=== PATIENT | male | born 1960 | race African-American/Black ===

== ENCOUNTER 2023-03-24 12:53 | Inpatient (IN) | payer OTHER ==
[2023-03-24] MEDS ORDERED: hydrOXYzine PAMOATE 25 MG CAPSULE (FP) PO PRN (16:44)
[2023-03-24] MEDS ORDERED: IBUPROFEN 400 MG TABLET (FP) PO PRN (16:44)
[2023-03-24] MEDS ORDERED: LOPERAMIDE HCL 2 MG CAPSULE PO PRN (16:44)
[2023-03-24] MEDS ORDERED: BENZOCAINE/MENTHOL (CHLORASEPTIC ) LOZENGE MM PRN (16:44)
[2023-03-24] MEDS ORDERED: guaiFENesin 600 MG TABLET.ER (FP) PO PRN (16:44)
[2023-03-24] MEDS ORDERED: NALOXONE HCL (KLOXXADO) 8 MG SPRAY NS PRN (16:44)
[2023-03-24] MEDS ORDERED: POLYETHYLENE GLYCOL (HEALTHYLAX) 3350 17 GM PACKET PO PRN (16:44)
[2023-03-24] MEDS ORDERED: BENZONATATE 200 MG CAPSULE PO PRN (16:44)
[2023-03-24] MEDS ORDERED: COLLOIDAL OATMEAL 1 BAR EACH TP PRN (16:44)
[2023-03-24] MEDS ORDERED: NALOXONE HCL 0.4 MG/ML VIAL IM PRN (16:44)
[2023-03-24] MEDS ORDERED: AMMONIUM LACTATE 12% LOTION 225 GM BOTTLE TP PRN (16:44)
[2023-03-24] MEDS ORDERED: MAGNESIUM HYDROX 2400MG/30ML ORAL SUSPENSION 30 ML CUP PO PRN (16:44)
[2023-03-24] MEDS ORDERED: TUBERCULIN PPD 5 TU/0.1ML VIAL ID ONE ×2 (18:59→21:48)
[2023-03-24] MEDS: THIAMINE HCL 100 MG TABLET (FP) PO SCH (21:07)
[2023-03-24] MEDS: MELATONIN 5 MG TABLETS PO SCH (21:07)
[2023-03-24] MEDS ORDERED: INSULIN (LEVEMIR) 100 UNITS/ML UNITS SQ ONE ×2 (21:09→21:48)
[2023-03-24] MEDS: ATORVASTATIN CA 80 MG TABLET (FP) PO SCH (21:11)
[2023-03-24] MEDS: INSULIN (LEVEMIR) 100 UNITS/ML UNITS SQ SCH (21:11)
[2023-03-24] MEDS ORDERED: INSULIN (NOVOLOG) ASPART 100 UNITS/ML 10ML VIAL ONE (21:48)
[2023-03-25] MEDS: IBUPROFEN 600 MG TABLET (FP) PO PRN ×2 (04:34→10:37)
[2023-03-25] MEDS: metFORMIN HCL 500 MG TABLET (FP) PO SCH (06:22)
[2023-03-25] MEDS ORDERED: methaDONE HCL 10 MG TABLET PO SCH (09:30)
[2023-03-25] MEDS: BACITRACIN 0.9 GM PACKET TP SCH (10:08)
[2023-03-25] MEDS: CLOPIDOGREL BISULFATE 75 MG TABLET (FP) PO SCH (10:09)
[2023-03-25] MEDS: PRENATAL VITAMINS W/ FOLIC ACID TABLET (FP) PO SCH (10:09)
[2023-03-25] MEDS: ASPIRIN 81 MG CHEWABLE TABLETS PO SCH (10:09)
[2023-03-25] MEDS ORDERED: methaDONE 80 MG, methaDONE 20 MG PO SCH (10:10)
[2023-03-25 11:28] LABS: HEMATOCRIT 25.2 % (35.4-49); HEMOGLOBIN 8.6 GM/dL (11.7-16.9); MCH 31.5 pg (25.7-33.7); MCHC 34.1 g/dl (32.0-35.9); MEAN CELL VOLUME 92.2 fl (80-96); PLATELET COUNT 195 10^3/uL (134-434); RBC 2.74 M/mm3 (4.00-5.60); RDW 15.9 % (11.9-15.9); WHITE BLOOD COUNT 5.3 K/mm3 (4.0-10.0)
[2023-03-25 11:32] LABS: POTASSIUM 4.7 mmol/L (3.5-5.1)
[2023-03-25 11:41] LABS: CREATININE 1.2 mg/dL (0.55-1.3)
[2023-03-25 11:43] LABS: BILIRUBIN,TOTAL 0.1 mg/dL (0.2-1); TOT PROT 6.6 g/dl (6.4-8.2)
[2023-03-25 11:46] LABS: CALCIUM 9.1 mg/dL (8.5-10.1)
[2023-03-25 11:47] LABS: BLOOD UREA NITROGEN 28.9 mg/dL (7-18)
[2023-03-25 11:55] LABS: SYPHILIS W/ RPR CONF NON-REACTIVE (NONREACTIVE)
[2023-03-25] MEDS: FERROUS SO4 325 MG TABLET (FP) PO SCH (13:14)
[2023-03-25] MEDS: PANTOPRAZOLE 40 MG TABLET PO SCH (14:32)
[2023-03-25] MEDS: INSULIN (LEVEMIR) 100 UNITS/ML UNITS SQ SCH (21:25)
[2023-03-25] MEDS: THIAMINE HCL 100 MG TABLET (FP) PO SCH (21:26)
[2023-03-25] MEDS: ATORVASTATIN CA 80 MG TABLET (FP) PO SCH (21:26)
[2023-03-25] MEDS: MELATONIN 5 MG TABLETS PO SCH (21:26)
[2023-03-25] MEDS: ACETAMINOPHEN 325 MG TABLET (FP) PO PRN (21:27)
[2023-03-26] MEDS: metFORMIN HCL 500 MG TABLET (FP) PO SCH (06:34)
[2023-03-26] MEDS: methaDONE 80 MG, methaDONE 20 MG PO SCH (06:34)
[2023-03-26] MEDS: ACETAMINOPHEN 325 MG TABLET (FP) PO PRN ×2 (06:36→21:20)
[2023-03-26] MEDS: FERROUS SO4 325 MG TABLET (FP) PO SCH (09:37)
[2023-03-26] MEDS: ASPIRIN 81 MG CHEWABLE TABLETS PO SCH (09:37)
[2023-03-26] MEDS: PANTOPRAZOLE 40 MG TABLET PO SCH (09:37)
[2023-03-26] MEDS: CLOPIDOGREL BISULFATE 75 MG TABLET (FP) PO SCH (09:37)
[2023-03-26] MEDS: PRENATAL VITAMINS W/ FOLIC ACID TABLET (FP) PO SCH (09:37)
[2023-03-26] MEDS: BACITRACIN 0.9 GM PACKET TP SCH (09:39)
[2023-03-26] MEDS ORDERED: methaDONE HCL 10 MG TABLET PO SCH (10:00)
[2023-03-26 15:00] LABS: URINE APPEARANCE CLEAR; URINE BILIRUBIN NEGATIVE (NEGATIVE); URINE COLOR YELLOW; URINE GLUCOSE (UA) NEGATIVE (NEGATIVE); URINE KETONE NEGATIVE (NEGATIVE); URINE LEUK ESTERASE NEGATIVE (NEGATIVE); URINE NITRITE NEGATIVE (NEGATIVE); URINE PROTEIN NEGATIVE (NEGATIVE); URINE UROBILINOGEN 0.2 mg/dL (0.2-1.0)
[2023-03-26] MEDS: MELATONIN 5 MG TABLETS PO SCH (21:19)
[2023-03-26] MEDS: ATORVASTATIN CA 80 MG TABLET (FP) PO SCH (21:20)
[2023-03-26] MEDS: THIAMINE HCL 100 MG TABLET (FP) PO SCH (21:20)
[2023-03-26] MEDS: INSULIN (LEVEMIR) 100 UNITS/ML UNITS SQ SCH (21:21)
[2023-03-27] MEDS: ACETAMINOPHEN 325 MG TABLET (FP) PO PRN ×3 (01:17→21:39)
[2023-03-27] MEDS ORDERED: methaDONE 80 MG, methaDONE 20 MG PO SCH (06:00)
[2023-03-27] MEDS: metFORMIN HCL 500 MG TABLET (FP) PO SCH (06:17)
[2023-03-27] MEDS: methaDONE 80 MG, methaDONE 20 MG PO SCH (06:18)
[2023-03-27] MEDS: ASPIRIN 81 MG CHEWABLE TABLETS PO SCH (09:22)
[2023-03-27] MEDS: CLOPIDOGREL BISULFATE 75 MG TABLET (FP) PO SCH (09:23)
[2023-03-27] MEDS: FERROUS SO4 325 MG TABLET (FP) PO SCH (09:23)
[2023-03-27] MEDS: PANTOPRAZOLE 40 MG TABLET PO SCH (09:23)
[2023-03-27] MEDS: PRENATAL VITAMINS W/ FOLIC ACID TABLET (FP) PO SCH (09:23)
[2023-03-27] MEDS: BACITRACIN 0.9 GM PACKET TP SCH (09:25)
[2023-03-27] MEDS: INSULIN (LEVEMIR) 100 UNITS/ML UNITS SQ SCH (21:37)
[2023-03-27] MEDS: THIAMINE HCL 100 MG TABLET (FP) PO SCH (21:39)
[2023-03-27] MEDS: MELATONIN 5 MG TABLETS PO SCH (21:39)
[2023-03-27] MEDS: ATORVASTATIN CA 80 MG TABLET (FP) PO SCH (21:44)
[2023-03-28] MEDS: ACETAMINOPHEN 325 MG TABLET (FP) PO PRN ×4 (03:45→21:37)
[2023-03-28] MEDS: metFORMIN HCL 500 MG TABLET (FP) PO SCH (06:44)
[2023-03-28] MEDS: methaDONE 80 MG, methaDONE 20 MG PO SCH (06:45)
[2023-03-28] MEDS: ASPIRIN 81 MG CHEWABLE TABLETS PO SCH (09:23)
[2023-03-28] MEDS: BACITRACIN 0.9 GM PACKET TP SCH (09:23)
[2023-03-28] MEDS: CLOPIDOGREL BISULFATE 75 MG TABLET (FP) PO SCH (09:23)
[2023-03-28] MEDS: FERROUS SO4 325 MG TABLET (FP) PO SCH (09:23)
[2023-03-28] MEDS: PANTOPRAZOLE 40 MG TABLET PO SCH (09:23)
[2023-03-28] MEDS: PRENATAL VITAMINS W/ FOLIC ACID TABLET (FP) PO SCH (09:24)
[2023-03-28] MEDS: MELATONIN 5 MG TABLETS PO SCH (21:37)
[2023-03-28] MEDS: ATORVASTATIN CA 80 MG TABLET (FP) PO SCH (21:37)
[2023-03-28] MEDS: THIAMINE HCL 100 MG TABLET (FP) PO SCH (21:37)
[2023-03-28] MEDS: INSULIN (LEVEMIR) 100 UNITS/ML UNITS SQ SCH (21:39)
[2023-03-29] MEDS: ACETAMINOPHEN 325 MG TABLET (FP) PO PRN ×3 (01:52→21:36)
[2023-03-29] MEDS: methaDONE 80 MG, methaDONE 20 MG PO SCH (06:22)
[2023-03-29] MEDS: metFORMIN HCL 500 MG TABLET (FP) PO SCH (06:22)
[2023-03-29] MEDS: ASPIRIN 81 MG CHEWABLE TABLETS PO SCH (09:42)
[2023-03-29] MEDS: CLOPIDOGREL BISULFATE 75 MG TABLET (FP) PO SCH (09:42)
[2023-03-29] MEDS: FERROUS SO4 325 MG TABLET (FP) PO SCH (09:42)
[2023-03-29] MEDS: PANTOPRAZOLE 40 MG TABLET PO SCH (09:42)
[2023-03-29] MEDS: PRENATAL VITAMINS W/ FOLIC ACID TABLET (FP) PO SCH (09:43)
[2023-03-29] MEDS: BACITRACIN 0.9 GM PACKET TP SCH (09:44)
[2023-03-29] MEDS: THIAMINE HCL 100 MG TABLET (FP) PO SCH (21:36)
[2023-03-29] MEDS: MELATONIN 5 MG TABLETS PO SCH (21:36)
[2023-03-29] MEDS: ATORVASTATIN CA 80 MG TABLET (FP) PO SCH (21:36)
[2023-03-29] MEDS: INSULIN (LEVEMIR) 100 UNITS/ML UNITS SQ SCH (21:36)
[2023-03-30] MEDS: ACETAMINOPHEN 325 MG TABLET (FP) PO PRN ×3 (02:13→21:44)
[2023-03-30] MEDS: metFORMIN HCL 500 MG TABLET (FP) PO SCH (06:17)
[2023-03-30] MEDS: methaDONE 80 MG, methaDONE 20 MG PO SCH (06:17)
[2023-03-30] MEDS: FERROUS SO4 325 MG TABLET (FP) PO SCH (09:28)
[2023-03-30] MEDS: CLOPIDOGREL BISULFATE 75 MG TABLET (FP) PO SCH (09:28)
[2023-03-30] MEDS: ASPIRIN 81 MG CHEWABLE TABLETS PO SCH (09:28)
[2023-03-30] MEDS: PANTOPRAZOLE 40 MG TABLET PO SCH (09:28)
[2023-03-30] MEDS: PRENATAL VITAMINS W/ FOLIC ACID TABLET (FP) PO SCH (09:28)
[2023-03-30] MEDS: BACITRACIN 0.9 GM PACKET TP SCH (09:30)
[2023-03-30] MEDS: INSULIN (LEVEMIR) 100 UNITS/ML UNITS SQ SCH (21:42)
[2023-03-30] MEDS: ATORVASTATIN CA 80 MG TABLET (FP) PO SCH (21:43)
[2023-03-30] MEDS: THIAMINE HCL 100 MG TABLET (FP) PO SCH (21:44)
[2023-03-30] MEDS: MELATONIN 5 MG TABLETS PO SCH (21:44)
[2023-03-31] MEDS: methaDONE 80 MG, methaDONE 20 MG PO SCH (06:35)
[2023-03-31] MEDS: metFORMIN HCL 500 MG TABLET (FP) PO SCH (07:43)
[2023-03-31] MEDS: PANTOPRAZOLE 40 MG TABLET PO SCH (09:40)
[2023-03-31] MEDS: ASPIRIN 81 MG CHEWABLE TABLETS PO SCH (09:40)
[2023-03-31] MEDS: FERROUS SO4 325 MG TABLET (FP) PO SCH (09:40)
[2023-03-31] MEDS: BACITRACIN 0.9 GM PACKET TP SCH (09:40)
[2023-03-31] MEDS: CLOPIDOGREL BISULFATE 75 MG TABLET (FP) PO SCH (09:41)
[2023-03-31] MEDS: PRENATAL VITAMINS W/ FOLIC ACID TABLET (FP) PO SCH (09:41)
[2023-03-31] MEDS: ACETAMINOPHEN 325 MG TABLET (FP) PO PRN ×2 (14:07→21:18)
[2023-03-31] MEDS: MELATONIN 5 MG TABLETS PO SCH (21:17)
[2023-03-31] MEDS: ATORVASTATIN CA 80 MG TABLET (FP) PO SCH (21:17)
[2023-03-31] MEDS: THIAMINE HCL 100 MG TABLET (FP) PO SCH (21:17)
[2023-03-31] MEDS: INSULIN (LEVEMIR) 100 UNITS/ML UNITS SQ SCH (21:20)
[2023-03-31] MEDS ORDERED: INSULIN (NOVOLOG) ASPART 100 UNITS/ML 10ML VIAL ONE (22:51)
[2023-03-31] MEDS ORDERED: INSULIN (LEVEMIR) 100 UNITS/ML UNITS SQ ONE (22:51)
[2023-04-01] MEDS: ACETAMINOPHEN 325 MG TABLET (FP) PO PRN (02:37)
[2023-04-01] MEDS: metFORMIN HCL 500 MG TABLET (FP) PO SCH (06:22)
[2023-04-01] MEDS: methaDONE 80 MG, methaDONE 20 MG PO SCH (06:22)
[2023-04-01] MEDS: PANTOPRAZOLE 40 MG TABLET PO SCH (09:27)
[2023-04-01] MEDS: FERROUS SO4 325 MG TABLET (FP) PO SCH (09:27)
[2023-04-01] MEDS: PRENATAL VITAMINS W/ FOLIC ACID TABLET (FP) PO SCH (09:27)
[2023-04-01] MEDS: CLOPIDOGREL BISULFATE 75 MG TABLET (FP) PO SCH (09:27)
[2023-04-01] MEDS: ASPIRIN 81 MG CHEWABLE TABLETS PO SCH (09:27)
[2023-04-01] MEDS: BACITRACIN 0.9 GM PACKET TP SCH (09:28)
[2023-04-01] MEDS: CLINDAMYCIN PHOSPHATE 1% TOPICAL GEL 30 GM TUBE TP SCH (15:15)
[2023-04-01] MEDS: LIDOCAINE 5% TOPICAL PATCH TP SCH (15:15)
[2023-04-01] MEDS: INSULIN SLIDING SCALE (NOVOLOG) 1 VIAL SQ SCH (17:00)
[2023-04-01] MEDS ORDERED: INSULIN (NOVOLOG) ASPART 100 UNITS/ML 10ML VIAL ONE (17:25)
[2023-04-01] MEDS: THIAMINE HCL 100 MG TABLET (FP) PO SCH (21:46)
[2023-04-01] MEDS: MELATONIN 5 MG TABLETS PO SCH (21:46)
[2023-04-01] MEDS: ATORVASTATIN CA 80 MG TABLET (FP) PO SCH (21:46)
[2023-04-01] MEDS: LIDOCAINE PATCH REMOVAL MC SCH (21:47)
[2023-04-01] MEDS: INSULIN (LEVEMIR) 100 UNITS/ML UNITS SQ SCH (22:15)
[2023-04-01] MEDS: METHYL SALICYLATE/MENTHOL OINT 30 GM TUBE TP SCH (22:31)
[2023-04-02] MEDS: methaDONE 80 MG, methaDONE 20 MG PO SCH (06:09)
[2023-04-02] MEDS: metFORMIN HCL 500 MG TABLET (FP) PO SCH (06:09)
[2023-04-02] MEDS: ACETAMINOPHEN 325 MG TABLET (FP) PO PRN ×2 (06:12→21:20)
[2023-04-02] MEDS: INSULIN SLIDING SCALE (NOVOLOG) 1 VIAL SQ SCH ×2 (07:26→16:28)
[2023-04-02] MEDS: ASPIRIN 81 MG CHEWABLE TABLETS PO SCH (09:41)
[2023-04-02] MEDS: CLINDAMYCIN PHOSPHATE 1% TOPICAL GEL 30 GM TUBE TP SCH (09:41)
[2023-04-02] MEDS: FERROUS SO4 325 MG TABLET (FP) PO SCH (09:41)
[2023-04-02] MEDS: CLOPIDOGREL BISULFATE 75 MG TABLET (FP) PO SCH (09:41)
[2023-04-02] MEDS: PRENATAL VITAMINS W/ FOLIC ACID TABLET (FP) PO SCH (09:42)
[2023-04-02] MEDS: LIDOCAINE 5% TOPICAL PATCH TP SCH (09:42)
[2023-04-02] MEDS: METHYL SALICYLATE/MENTHOL OINT 30 GM TUBE TP SCH ×2 (09:43→21:18)
[2023-04-02] MEDS: PANTOPRAZOLE 40 MG TABLET PO SCH (09:45)
[2023-04-02] MEDS ORDERED: INSULIN (NOVOLOG) ASPART 100 UNITS/ML 10ML VIAL ONE ×2 (16:28→22:42)
[2023-04-02] MEDS: MELATONIN 5 MG TABLETS PO SCH (21:16)
[2023-04-02] MEDS: THIAMINE HCL 100 MG TABLET (FP) PO SCH (21:16)
[2023-04-02] MEDS: ATORVASTATIN CA 80 MG TABLET (FP) PO SCH (21:16)
[2023-04-02] MEDS: INSULIN (LEVEMIR) 100 UNITS/ML UNITS SQ SCH (21:18)
[2023-04-02] MEDS: LIDOCAINE PATCH REMOVAL MC SCH (21:19)
[2023-04-02] MEDS ORDERED: INSULIN (LEVEMIR) 100 UNITS/ML UNITS SQ ONE (22:42)
[2023-04-03] MEDS: metFORMIN HCL 500 MG TABLET (FP) PO SCH (06:08)
[2023-04-03] MEDS: methaDONE 80 MG, methaDONE 20 MG PO SCH (06:08)
[2023-04-03] MEDS: ACETAMINOPHEN 325 MG TABLET (FP) PO PRN ×2 (06:09→21:05)
[2023-04-03] MEDS: INSULIN SLIDING SCALE (NOVOLOG) 1 VIAL SQ SCH ×2 (07:15→16:37)
[2023-04-03] MEDS: FERROUS SO4 325 MG TABLET (FP) PO SCH (09:59)
[2023-04-03] MEDS: CLINDAMYCIN PHOSPHATE 1% TOPICAL GEL 30 GM TUBE TP SCH (09:59)
[2023-04-03] MEDS: PANTOPRAZOLE 40 MG TABLET PO SCH (10:00)
[2023-04-03] MEDS: PRENATAL VITAMINS W/ FOLIC ACID TABLET (FP) PO SCH (10:00)
[2023-04-03] MEDS: CLOPIDOGREL BISULFATE 75 MG TABLET (FP) PO SCH (10:00)
[2023-04-03] MEDS: LIDOCAINE 5% TOPICAL PATCH TP SCH (10:00)
[2023-04-03] MEDS: ASPIRIN 81 MG CHEWABLE TABLETS PO SCH (10:00)
[2023-04-03] MEDS: METHYL SALICYLATE/MENTHOL OINT 30 GM TUBE TP SCH ×2 (10:01→21:04)
[2023-04-03] MEDS ORDERED: INSULIN (NOVOLOG) ASPART 100 UNITS/ML 10ML VIAL ONE (16:29)
[2023-04-03] MEDS: ATORVASTATIN CA 80 MG TABLET (FP) PO SCH (21:04)
[2023-04-03] MEDS: INSULIN (LEVEMIR) 100 UNITS/ML UNITS SQ SCH (21:04)
[2023-04-03] MEDS: MELATONIN 5 MG TABLETS PO SCH (21:04)
[2023-04-03] MEDS: LIDOCAINE PATCH REMOVAL MC SCH (21:04)
[2023-04-03] MEDS: THIAMINE HCL 100 MG TABLET (FP) PO SCH (21:04)
[2023-04-04] MEDS: metFORMIN HCL 500 MG TABLET (FP) PO SCH (06:07)
[2023-04-04] MEDS: methaDONE 80 MG, methaDONE 20 MG PO SCH (06:07)
[2023-04-04] MEDS: INSULIN SLIDING SCALE (NOVOLOG) 1 VIAL SQ SCH ×2 (06:08→16:55)
[2023-04-04] MEDS: ACETAMINOPHEN 325 MG TABLET (FP) PO PRN (06:09)
[2023-04-04] MEDS: FERROUS SO4 325 MG TABLET (FP) PO SCH (09:53)
[2023-04-04] MEDS: CLINDAMYCIN PHOSPHATE 1% TOPICAL GEL 30 GM TUBE TP SCH (09:53)
[2023-04-04] MEDS: METHYL SALICYLATE/MENTHOL OINT 30 GM TUBE TP SCH ×2 (09:53→21:47)
[2023-04-04] MEDS: CLOPIDOGREL BISULFATE 75 MG TABLET (FP) PO SCH (09:53)
[2023-04-04] MEDS: PRENATAL VITAMINS W/ FOLIC ACID TABLET (FP) PO SCH (09:53)
[2023-04-04] MEDS: PANTOPRAZOLE 40 MG TABLET PO SCH (09:53)
[2023-04-04] MEDS: ASPIRIN 81 MG CHEWABLE TABLETS PO SCH (09:53)
[2023-04-04] MEDS: LIDOCAINE 5% TOPICAL PATCH TP SCH (09:54)
[2023-04-04] MEDS ORDERED: INSULIN (NOVOLOG) ASPART 100 UNITS/ML 10ML VIAL ONE (16:57)
[2023-04-04] MEDS: INSULIN (LEVEMIR) 100 UNITS/ML UNITS SQ SCH (21:46)
[2023-04-04] MEDS: THIAMINE HCL 100 MG TABLET (FP) PO SCH (21:47)
[2023-04-04] MEDS: ATORVASTATIN CA 80 MG TABLET (FP) PO SCH (21:47)
[2023-04-04] MEDS: MELATONIN 5 MG TABLETS PO SCH (21:47)
[2023-04-04] MEDS: LIDOCAINE PATCH REMOVAL MC SCH (21:48)
[2023-04-05] MEDS: methaDONE 80 MG, methaDONE 20 MG PO SCH (06:37)
[2023-04-05] MEDS: metFORMIN HCL 500 MG TABLET (FP) PO SCH (06:37)
[2023-04-05] MEDS: INSULIN SLIDING SCALE (NOVOLOG) 1 VIAL SQ SCH ×2 (06:38→16:40)
[2023-04-05] MEDS: CLOPIDOGREL BISULFATE 75 MG TABLET (FP) PO SCH (09:59)
[2023-04-05] MEDS: ASPIRIN 81 MG CHEWABLE TABLETS PO SCH (09:59)
[2023-04-05] MEDS: PANTOPRAZOLE 40 MG TABLET PO SCH (09:59)
[2023-04-05] MEDS: PRENATAL VITAMINS W/ FOLIC ACID TABLET (FP) PO SCH (09:59)
[2023-04-05] MEDS: FERROUS SO4 325 MG TABLET (FP) PO SCH (09:59)
[2023-04-05] MEDS: LIDOCAINE 5% TOPICAL PATCH TP SCH (10:00)
[2023-04-05] MEDS: CLINDAMYCIN PHOSPHATE 1% TOPICAL GEL 30 GM TUBE TP SCH (10:00)
[2023-04-05] MEDS: METHYL SALICYLATE/MENTHOL OINT 30 GM TUBE TP SCH ×2 (10:00→21:26)
[2023-04-05] MEDS: THIAMINE HCL 100 MG TABLET (FP) PO SCH (21:23)
[2023-04-05] MEDS: ATORVASTATIN CA 80 MG TABLET (FP) PO SCH (21:23)
[2023-04-05] MEDS: MELATONIN 5 MG TABLETS PO SCH (21:23)
[2023-04-05] MEDS: LIDOCAINE PATCH REMOVAL MC SCH (21:23)
[2023-04-05] MEDS: INSULIN (LEVEMIR) 100 UNITS/ML UNITS SQ SCH (21:25)
[2023-04-05] MEDS ORDERED: INSULIN (LEVEMIR) 100 UNITS/ML UNITS SQ ONE (21:39)
[2023-04-05] MEDS ORDERED: INSULIN (NOVOLOG) ASPART 100 UNITS/ML 10ML VIAL ONE (23:40)
[2023-04-06] MEDS: metFORMIN HCL 500 MG TABLET (FP) PO SCH (06:28)
[2023-04-06] MEDS: methaDONE 80 MG, methaDONE 20 MG PO SCH (06:28)
[2023-04-06] MEDS: INSULIN SLIDING SCALE (NOVOLOG) 1 VIAL SQ SCH ×2 (09:02→16:46)
[2023-04-06] MEDS: METHYL SALICYLATE/MENTHOL OINT 30 GM TUBE TP SCH ×2 (09:30→21:30)
[2023-04-06] MEDS: PRENATAL VITAMINS W/ FOLIC ACID TABLET (FP) PO SCH (09:31)
[2023-04-06] MEDS: FERROUS SO4 325 MG TABLET (FP) PO SCH (09:31)
[2023-04-06] MEDS: ASPIRIN 81 MG CHEWABLE TABLETS PO SCH (09:31)
[2023-04-06] MEDS: CLOPIDOGREL BISULFATE 75 MG TABLET (FP) PO SCH (09:31)
[2023-04-06] MEDS: LIDOCAINE 5% TOPICAL PATCH TP SCH (09:31)
[2023-04-06] MEDS: PANTOPRAZOLE 40 MG TABLET PO SCH (09:31)
[2023-04-06] MEDS: CLINDAMYCIN PHOSPHATE 1% TOPICAL GEL 30 GM TUBE TP SCH (09:32)
[2023-04-06] MEDS ORDERED: INSULIN (NOVOLOG) ASPART 100 UNITS/ML 10ML VIAL ONE ×2 (16:34→22:32)
[2023-04-06] MEDS: MELATONIN 5 MG TABLETS PO SCH (21:27)
[2023-04-06] MEDS: ATORVASTATIN CA 80 MG TABLET (FP) PO SCH (21:27)
[2023-04-06] MEDS: THIAMINE HCL 100 MG TABLET (FP) PO SCH (21:27)
[2023-04-06] MEDS: ACETAMINOPHEN 325 MG TABLET (FP) PO PRN (21:27)
[2023-04-06] MEDS: INSULIN (LEVEMIR) 100 UNITS/ML UNITS SQ SCH (21:30)
[2023-04-06] MEDS: LIDOCAINE PATCH REMOVAL MC SCH (21:30)
[2023-04-07] MEDS: methaDONE 80 MG, methaDONE 20 MG PO SCH (06:21)
[2023-04-07] MEDS: metFORMIN HCL 500 MG TABLET (FP) PO SCH (06:21)
[2023-04-07] MEDS: INSULIN SLIDING SCALE (NOVOLOG) 1 VIAL SQ SCH ×2 (06:23→16:42)
[2023-04-07] MEDS: PRENATAL VITAMINS W/ FOLIC ACID TABLET (FP) PO SCH (09:40)
[2023-04-07] MEDS: ASPIRIN 81 MG CHEWABLE TABLETS PO SCH (09:41)
[2023-04-07] MEDS: PANTOPRAZOLE 40 MG TABLET PO SCH (09:41)
[2023-04-07] MEDS: CLOPIDOGREL BISULFATE 75 MG TABLET (FP) PO SCH (09:41)
[2023-04-07] MEDS: LIDOCAINE 5% TOPICAL PATCH TP SCH (09:41)
[2023-04-07] MEDS: FERROUS SO4 325 MG TABLET (FP) PO SCH (09:41)
[2023-04-07] MEDS: MAG HYDROX/AL HYDROX/SIMETH 30 ML UNIT-DOSE CUP PO PRN (09:42)
[2023-04-07] MEDS: METHYL SALICYLATE/MENTHOL OINT 30 GM TUBE TP SCH ×2 (09:42→21:14)
[2023-04-07] MEDS: CLINDAMYCIN PHOSPHATE 1% TOPICAL GEL 30 GM TUBE TP SCH (09:42)
[2023-04-07] MEDS ORDERED: INSULIN (NOVOLOG) ASPART 100 UNITS/ML 10ML VIAL ONE (16:32)
[2023-04-07] MEDS: MELATONIN 5 MG TABLETS PO SCH (21:13)
[2023-04-07] MEDS: THIAMINE HCL 100 MG TABLET (FP) PO SCH (21:13)
[2023-04-07] MEDS: INSULIN (LEVEMIR) 100 UNITS/ML UNITS SQ SCH (21:15)
[2023-04-07] MEDS: LIDOCAINE PATCH REMOVAL MC SCH (21:15)
[2023-04-07] MEDS: ATORVASTATIN CA 80 MG TABLET (FP) PO SCH (21:16)
[2023-04-08] MEDS: metFORMIN HCL 500 MG TABLET (FP) PO SCH (06:07)
[2023-04-08] MEDS: INSULIN SLIDING SCALE (NOVOLOG) 1 VIAL SQ SCH ×2 (06:07→17:11)
[2023-04-08] MEDS: methaDONE 80 MG, methaDONE 20 MG PO SCH (06:07)
[2023-04-08] MEDS: METHYL SALICYLATE/MENTHOL OINT 30 GM TUBE TP SCH ×2 (09:55→21:43)
[2023-04-08] MEDS: ASPIRIN 81 MG CHEWABLE TABLETS PO SCH (09:55)
[2023-04-08] MEDS: LIDOCAINE 5% TOPICAL PATCH TP SCH (09:55)
[2023-04-08] MEDS: PANTOPRAZOLE 40 MG TABLET PO SCH (09:56)
[2023-04-08] MEDS: PRENATAL VITAMINS W/ FOLIC ACID TABLET (FP) PO SCH (09:56)
[2023-04-08] MEDS: FERROUS SO4 325 MG TABLET (FP) PO SCH (09:56)
[2023-04-08] MEDS: CLINDAMYCIN PHOSPHATE 1% TOPICAL GEL 30 GM TUBE TP SCH (09:56)
[2023-04-08] MEDS: CLOPIDOGREL BISULFATE 75 MG TABLET (FP) PO SCH (09:56)
[2023-04-08] MEDS ORDERED: INSULIN (NOVOLOG) ASPART 100 UNITS/ML 10ML VIAL ONE (17:02)
[2023-04-08] MEDS: ATORVASTATIN CA 80 MG TABLET (FP) PO SCH (21:48)
[2023-04-08] MEDS: THIAMINE HCL 100 MG TABLET (FP) PO SCH (21:49)
[2023-04-08] MEDS: MELATONIN 5 MG TABLETS PO SCH (21:49)
[2023-04-08] MEDS: LIDOCAINE PATCH REMOVAL MC SCH (22:18)
[2023-04-08] MEDS: INSULIN (LEVEMIR) 100 UNITS/ML UNITS SQ SCH (22:18)
[2023-04-09] MEDS: metFORMIN HCL 500 MG TABLET (FP) PO SCH (06:05)
[2023-04-09] MEDS: methaDONE 80 MG, methaDONE 20 MG PO SCH (06:05)
[2023-04-09] MEDS: INSULIN SLIDING SCALE (NOVOLOG) 1 VIAL SQ SCH ×2 (07:03→16:48)
[2023-04-09] MEDS: LIDOCAINE 5% TOPICAL PATCH TP SCH (09:52)
[2023-04-09] MEDS: METHYL SALICYLATE/MENTHOL OINT 30 GM TUBE TP SCH ×2 (09:52→21:31)
[2023-04-09] MEDS: CLINDAMYCIN PHOSPHATE 1% TOPICAL GEL 30 GM TUBE TP SCH (09:52)
[2023-04-09] MEDS: PANTOPRAZOLE 40 MG TABLET PO SCH (09:53)
[2023-04-09] MEDS: ASPIRIN 81 MG CHEWABLE TABLETS PO SCH (09:53)
[2023-04-09] MEDS: FERROUS SO4 325 MG TABLET (FP) PO SCH (09:53)
[2023-04-09] MEDS: PRENATAL VITAMINS W/ FOLIC ACID TABLET (FP) PO SCH (09:53)
[2023-04-09] MEDS: CLOPIDOGREL BISULFATE 75 MG TABLET (FP) PO SCH (09:53)
[2023-04-09] MEDS: THIAMINE HCL 100 MG TABLET (FP) PO SCH (21:31)
[2023-04-09] MEDS: ATORVASTATIN CA 80 MG TABLET (FP) PO SCH (21:31)
[2023-04-09] MEDS: LIDOCAINE PATCH REMOVAL MC SCH (21:31)
[2023-04-09] MEDS: MELATONIN 5 MG TABLETS PO SCH (21:31)
[2023-04-09] MEDS: INSULIN (LEVEMIR) 100 UNITS/ML UNITS SQ SCH (21:33)
[2023-04-09] MEDS ORDERED: INSULIN (LEVEMIR) 100 UNITS/ML UNITS SQ ONE (21:49)
[2023-04-09] MEDS ORDERED: INSULIN (NOVOLOG) ASPART 100 UNITS/ML 10ML VIAL ONE (21:49)
[2023-04-10] MEDS: metFORMIN HCL 500 MG TABLET (FP) PO SCH (07:35)
[2023-04-10] MEDS: methaDONE 80 MG, methaDONE 20 MG PO SCH (07:35)
[2023-04-10] MEDS: INSULIN SLIDING SCALE (NOVOLOG) 1 VIAL SQ SCH ×2 (07:41→17:22)
[2023-04-10] MEDS: ASPIRIN 81 MG CHEWABLE TABLETS PO SCH (10:01)
[2023-04-10] MEDS: FERROUS SO4 325 MG TABLET (FP) PO SCH (10:01)
[2023-04-10] MEDS: METHYL SALICYLATE/MENTHOL OINT 30 GM TUBE TP SCH ×2 (10:01→22:00)
[2023-04-10] MEDS: PANTOPRAZOLE 40 MG TABLET PO SCH (10:02)
[2023-04-10] MEDS: LIDOCAINE 5% TOPICAL PATCH TP SCH (10:02)
[2023-04-10] MEDS: PRENATAL VITAMINS W/ FOLIC ACID TABLET (FP) PO SCH (10:02)
[2023-04-10] MEDS: CLOPIDOGREL BISULFATE 75 MG TABLET (FP) PO SCH (10:02)
[2023-04-10] MEDS: CLINDAMYCIN PHOSPHATE 1% TOPICAL GEL 30 GM TUBE TP SCH (10:03)
[2023-04-10] MEDS: THIAMINE HCL 100 MG TABLET (FP) PO SCH (21:05)
[2023-04-10] MEDS: MELATONIN 5 MG TABLETS PO SCH (21:05)
[2023-04-10] MEDS: ATORVASTATIN CA 80 MG TABLET (FP) PO SCH (21:05)
[2023-04-10] MEDS: INSULIN (LEVEMIR) 100 UNITS/ML UNITS SQ SCH (22:00)
[2023-04-10] MEDS: LIDOCAINE PATCH REMOVAL MC SCH (22:01)
[2023-04-11] MEDS: metFORMIN HCL 500 MG TABLET (FP) PO SCH (06:00)
[2023-04-11] MEDS: methaDONE 80 MG, methaDONE 20 MG PO SCH (06:09)
[2023-04-11] MEDS: INSULIN SLIDING SCALE (NOVOLOG) 1 VIAL SQ SCH ×2 (06:36→16:40)
[2023-04-11] MEDS: METHYL SALICYLATE/MENTHOL OINT 30 GM TUBE TP SCH ×2 (10:02→21:06)
[2023-04-11] MEDS: CLINDAMYCIN PHOSPHATE 1% TOPICAL GEL 30 GM TUBE TP SCH (10:02)
[2023-04-11] MEDS: ASPIRIN 81 MG CHEWABLE TABLETS PO SCH (10:02)
[2023-04-11] MEDS: FERROUS SO4 325 MG TABLET (FP) PO SCH (10:02)
[2023-04-11] MEDS: CLOPIDOGREL BISULFATE 75 MG TABLET (FP) PO SCH (10:03)
[2023-04-11] MEDS: PANTOPRAZOLE 40 MG TABLET PO SCH (10:03)
[2023-04-11] MEDS: PRENATAL VITAMINS W/ FOLIC ACID TABLET (FP) PO SCH (10:03)
[2023-04-11] MEDS: LIDOCAINE 5% TOPICAL PATCH TP SCH (10:03)
[2023-04-11] MEDS: ACETAMINOPHEN 325 MG TABLET (FP) PO PRN (10:03)
[2023-04-11] MEDS: LIDOCAINE PATCH REMOVAL MC SCH (21:06)
[2023-04-11] MEDS: MELATONIN 5 MG TABLETS PO SCH (21:06)
[2023-04-11] MEDS: ATORVASTATIN CA 80 MG TABLET (FP) PO SCH (21:06)
[2023-04-11] MEDS: THIAMINE HCL 100 MG TABLET (FP) PO SCH (21:06)
[2023-04-11] MEDS: INSULIN (LEVEMIR) 100 UNITS/ML UNITS SQ SCH (21:06)
[2023-04-11] MEDS ORDERED: INSULIN (NOVOLOG) ASPART 100 UNITS/ML 10ML VIAL ONE (21:41)
[2023-04-11] MEDS ORDERED: INSULIN (LEVEMIR) 100 UNITS/ML UNITS SQ ONE (21:41)
[2023-04-12] MEDS: INSULIN SLIDING SCALE (NOVOLOG) 1 VIAL SQ SCH ×2 (06:21→16:36)
[2023-04-12] MEDS: metFORMIN HCL 500 MG TABLET (FP) PO SCH ×2 (06:21→06:24)
[2023-04-12] MEDS: methaDONE 80 MG, methaDONE 20 MG PO SCH (06:21)
[2023-04-12] MEDS: ASPIRIN 81 MG CHEWABLE TABLETS PO SCH (09:33)
[2023-04-12] MEDS: CLINDAMYCIN PHOSPHATE 1% TOPICAL GEL 30 GM TUBE TP SCH (09:33)
[2023-04-12] MEDS: FERROUS SO4 325 MG TABLET (FP) PO SCH (09:33)
[2023-04-12] MEDS: PANTOPRAZOLE 40 MG TABLET PO SCH (09:33)
[2023-04-12] MEDS: PRENATAL VITAMINS W/ FOLIC ACID TABLET (FP) PO SCH (09:33)
[2023-04-12] MEDS: CLOPIDOGREL BISULFATE 75 MG TABLET (FP) PO SCH (09:33)
[2023-04-12] MEDS: LIDOCAINE 5% TOPICAL PATCH TP SCH (09:33)
[2023-04-12] MEDS: METHYL SALICYLATE/MENTHOL OINT 30 GM TUBE TP SCH ×2 (09:34→21:26)
[2023-04-12] MEDS: MAG HYDROX/AL HYDROX/SIMETH 30 ML UNIT-DOSE CUP PO PRN (09:36)
[2023-04-12] MEDS: THIAMINE HCL 100 MG TABLET (FP) PO SCH (21:26)
[2023-04-12] MEDS: LIDOCAINE PATCH REMOVAL MC SCH (21:26)
[2023-04-12] MEDS: MELATONIN 5 MG TABLETS PO SCH (21:26)
[2023-04-12] MEDS: ATORVASTATIN CA 80 MG TABLET (FP) PO SCH (21:26)
[2023-04-12] MEDS: INSULIN (LEVEMIR) 100 UNITS/ML UNITS SQ SCH (21:27)
[2023-04-12] MEDS ORDERED: INSULIN (LEVEMIR) 100 UNITS/ML UNITS SQ ONE (21:41)
[2023-04-12] MEDS ORDERED: INSULIN (NOVOLOG) ASPART 100 UNITS/ML 10ML VIAL ONE (21:41)
[2023-04-13] MEDS: INSULIN SLIDING SCALE (NOVOLOG) 1 VIAL SQ SCH ×2 (06:45→16:33)
[2023-04-13] MEDS: metFORMIN HCL 500 MG TABLET (FP) PO SCH (06:46)
[2023-04-13] MEDS: methaDONE 80 MG, methaDONE 20 MG PO SCH (06:46)
[2023-04-13] MEDS: PRENATAL VITAMINS W/ FOLIC ACID TABLET (FP) PO SCH (09:42)
[2023-04-13] MEDS: ASPIRIN 81 MG CHEWABLE TABLETS PO SCH (09:42)
[2023-04-13] MEDS: CLOPIDOGREL BISULFATE 75 MG TABLET (FP) PO SCH (09:42)
[2023-04-13] MEDS: FERROUS SO4 325 MG TABLET (FP) PO SCH (09:42)
[2023-04-13] MEDS: LIDOCAINE 5% TOPICAL PATCH TP SCH (09:43)
[2023-04-13] MEDS: PANTOPRAZOLE 40 MG TABLET PO SCH (09:43)
[2023-04-13] MEDS: CLINDAMYCIN PHOSPHATE 1% TOPICAL GEL 30 GM TUBE TP SCH (09:43)
[2023-04-13] MEDS: METHYL SALICYLATE/MENTHOL OINT 30 GM TUBE TP SCH ×2 (09:43→21:37)
[2023-04-13] MEDS: ACETAMINOPHEN 325 MG TABLET (FP) PO PRN (11:02)
[2023-04-13] MEDS: LIDOCAINE PATCH REMOVAL MC SCH (21:37)
[2023-04-13] MEDS: ATORVASTATIN CA 80 MG TABLET (FP) PO SCH (21:40)
[2023-04-13] MEDS: INSULIN (LEVEMIR) 100 UNITS/ML UNITS SQ SCH (21:40)
[2023-04-13] MEDS: THIAMINE HCL 100 MG TABLET (FP) PO SCH (21:41)
[2023-04-13] MEDS: MELATONIN 5 MG TABLETS PO SCH (21:41)
[2023-04-13] MEDS ORDERED: INSULIN (LEVEMIR) 100 UNITS/ML UNITS SQ ONE (21:46)
[2023-04-13] MEDS ORDERED: INSULIN (NOVOLOG) ASPART 100 UNITS/ML 10ML VIAL ONE (21:46)
[2023-04-14] MEDS: metFORMIN HCL 500 MG TABLET (FP) PO SCH (06:29)
[2023-04-14] MEDS: methaDONE 80 MG, methaDONE 20 MG PO SCH (06:29)
[2023-04-14] MEDS: INSULIN SLIDING SCALE (NOVOLOG) 1 VIAL SQ SCH ×2 (06:30→17:28)
[2023-04-14] MEDS: METHYL SALICYLATE/MENTHOL OINT 30 GM TUBE TP SCH ×2 (09:58→22:10)
[2023-04-14] MEDS: FERROUS SO4 325 MG TABLET (FP) PO SCH (09:58)
[2023-04-14] MEDS: CLINDAMYCIN PHOSPHATE 1% TOPICAL GEL 30 GM TUBE TP SCH (09:58)
[2023-04-14] MEDS: CLOPIDOGREL BISULFATE 75 MG TABLET (FP) PO SCH (09:58)
[2023-04-14] MEDS: LIDOCAINE 5% TOPICAL PATCH TP SCH (09:58)
[2023-04-14] MEDS: ASPIRIN 81 MG CHEWABLE TABLETS PO SCH (09:58)
[2023-04-14] MEDS: ACETAMINOPHEN 325 MG TABLET (FP) PO PRN (09:59)
[2023-04-14] MEDS: PANTOPRAZOLE 40 MG TABLET PO SCH (09:59)
[2023-04-14] MEDS: PRENATAL VITAMINS W/ FOLIC ACID TABLET (FP) PO SCH (09:59)
[2023-04-14] MEDS: INSULIN (LEVEMIR) 100 UNITS/ML UNITS SQ SCH (22:10)
[2023-04-14] MEDS: THIAMINE HCL 100 MG TABLET (FP) PO SCH (22:11)
[2023-04-14] MEDS: MELATONIN 5 MG TABLETS PO SCH (22:11)
[2023-04-14] MEDS: ATORVASTATIN CA 80 MG TABLET (FP) PO SCH (22:11)
[2023-04-14] MEDS: LIDOCAINE PATCH REMOVAL MC SCH (22:14)
[2023-04-15] MEDS: metFORMIN HCL 500 MG TABLET (FP) PO SCH (06:07)
[2023-04-15] MEDS: methaDONE 80 MG, methaDONE 20 MG PO SCH (06:07)
[2023-04-15] MEDS: INSULIN SLIDING SCALE (NOVOLOG) 1 VIAL SQ SCH ×2 (06:20→16:45)
[2023-04-15] MEDS: CLINDAMYCIN PHOSPHATE 1% TOPICAL GEL 30 GM TUBE TP SCH (10:08)
[2023-04-15] MEDS: CLOPIDOGREL BISULFATE 75 MG TABLET (FP) PO SCH (10:08)
[2023-04-15] MEDS: FERROUS SO4 325 MG TABLET (FP) PO SCH (10:08)
[2023-04-15] MEDS: METHYL SALICYLATE/MENTHOL OINT 30 GM TUBE TP SCH ×2 (10:08→21:34)
[2023-04-15] MEDS: ASPIRIN 81 MG CHEWABLE TABLETS PO SCH (10:08)
[2023-04-15] MEDS: PANTOPRAZOLE 40 MG TABLET PO SCH (10:08)
[2023-04-15] MEDS: PRENATAL VITAMINS W/ FOLIC ACID TABLET (FP) PO SCH (10:08)
[2023-04-15] MEDS: LIDOCAINE 5% TOPICAL PATCH TP SCH (10:09)
[2023-04-15] MEDS ORDERED: BACITRACIN 0.9 GM PACKET ONE (13:23)
[2023-04-15] MEDS ORDERED: INSULIN (NOVOLOG) ASPART 100 UNITS/ML 10ML VIAL ONE (16:41)
[2023-04-15] MEDS: DOXYCYCLINE HYCLATE 100 MG TABLET PO SCH (18:22)
[2023-04-15] MEDS: BACITRACIN 0.9 GM PACKET TP SCH (21:34)
[2023-04-15] MEDS: THIAMINE HCL 100 MG TABLET (FP) PO SCH (21:35)
[2023-04-15] MEDS: LIDOCAINE PATCH REMOVAL MC SCH (21:35)
[2023-04-15] MEDS: INSULIN (LEVEMIR) 100 UNITS/ML UNITS SQ SCH (21:35)
[2023-04-15] MEDS: MELATONIN 5 MG TABLETS PO SCH (21:35)
[2023-04-15] MEDS: ATORVASTATIN CA 80 MG TABLET (FP) PO SCH (21:35)
[2023-04-16] MEDS: methaDONE 80 MG, methaDONE 20 MG PO SCH (06:25)
[2023-04-16] MEDS: metFORMIN HCL 500 MG TABLET (FP) PO SCH (06:26)
[2023-04-16] MEDS: DOXYCYCLINE HYCLATE 100 MG TABLET PO SCH ×2 (06:26→18:05)
[2023-04-16] MEDS: INSULIN SLIDING SCALE (NOVOLOG) 1 VIAL SQ SCH ×2 (06:27→16:46)
[2023-04-16] MEDS: ASPIRIN 81 MG CHEWABLE TABLETS PO SCH (09:52)
[2023-04-16] MEDS: LIDOCAINE 5% TOPICAL PATCH TP SCH (09:52)
[2023-04-16] MEDS: BACITRACIN 0.9 GM PACKET TP SCH ×2 (09:52→22:07)
[2023-04-16] MEDS: PRENATAL VITAMINS W/ FOLIC ACID TABLET (FP) PO SCH (09:53)
[2023-04-16] MEDS: CLOPIDOGREL BISULFATE 75 MG TABLET (FP) PO SCH (09:53)
[2023-04-16] MEDS: FERROUS SO4 325 MG TABLET (FP) PO SCH (09:53)
[2023-04-16] MEDS: PANTOPRAZOLE 40 MG TABLET PO SCH (09:53)
[2023-04-16] MEDS: METHYL SALICYLATE/MENTHOL OINT 30 GM TUBE TP SCH ×2 (09:55→22:07)
[2023-04-16] MEDS ORDERED: INSULIN (NOVOLOG) ASPART 100 UNITS/ML 10ML VIAL ONE (16:45)
[2023-04-16] MEDS: INSULIN (LEVEMIR) 100 UNITS/ML UNITS SQ SCH (22:04)
[2023-04-16] MEDS: LIDOCAINE PATCH REMOVAL MC SCH (22:06)
[2023-04-16] MEDS: ATORVASTATIN CA 80 MG TABLET (FP) PO SCH (22:06)
[2023-04-16] MEDS: THIAMINE HCL 100 MG TABLET (FP) PO SCH (22:07)
[2023-04-16] MEDS: MELATONIN 5 MG TABLETS PO SCH (22:07)
[2023-04-17] MEDS: DOXYCYCLINE HYCLATE 100 MG TABLET PO SCH ×2 (06:18→17:16)
[2023-04-17] MEDS: metFORMIN HCL 500 MG TABLET (FP) PO SCH (06:18)
[2023-04-17] MEDS: methaDONE 80 MG, methaDONE 20 MG PO SCH (06:18)
[2023-04-17] MEDS: INSULIN SLIDING SCALE (NOVOLOG) 1 VIAL SQ SCH ×2 (06:19→17:15)
[2023-04-17] MEDS: ASPIRIN 81 MG CHEWABLE TABLETS PO SCH (09:36)
[2023-04-17] MEDS: BACITRACIN 0.9 GM PACKET TP SCH ×2 (09:36→21:19)
[2023-04-17] MEDS: METHYL SALICYLATE/MENTHOL OINT 30 GM TUBE TP SCH ×2 (09:36→21:20)
[2023-04-17] MEDS: PANTOPRAZOLE 40 MG TABLET PO SCH (09:37)
[2023-04-17] MEDS: FERROUS SO4 325 MG TABLET (FP) PO SCH (09:37)
[2023-04-17] MEDS: LIDOCAINE 5% TOPICAL PATCH TP SCH (09:37)
[2023-04-17] MEDS: PRENATAL VITAMINS W/ FOLIC ACID TABLET (FP) PO SCH (09:37)
[2023-04-17] MEDS: CLOPIDOGREL BISULFATE 75 MG TABLET (FP) PO SCH (09:37)
[2023-04-17] MEDS ORDERED: INSULIN (NOVOLOG) ASPART 100 UNITS/ML 10ML VIAL ONE (17:09)
[2023-04-17] MEDS: INSULIN (LEVEMIR) 100 UNITS/ML UNITS SQ SCH (21:18)
[2023-04-17] MEDS: THIAMINE HCL 100 MG TABLET (FP) PO SCH (21:19)
[2023-04-17] MEDS: MELATONIN 5 MG TABLETS PO SCH (21:19)
[2023-04-17] MEDS: ATORVASTATIN CA 80 MG TABLET (FP) PO SCH (21:19)
[2023-04-17] MEDS: LIDOCAINE PATCH REMOVAL MC SCH (21:20)
[2023-04-18] MEDS: metFORMIN HCL 500 MG TABLET (FP) PO SCH (07:01)
[2023-04-18] MEDS: DOXYCYCLINE HYCLATE 100 MG TABLET PO SCH ×2 (07:01→18:01)
[2023-04-18] MEDS: methaDONE 80 MG, methaDONE 20 MG PO SCH (07:01)
[2023-04-18] MEDS: INSULIN SLIDING SCALE (NOVOLOG) 1 VIAL SQ SCH ×2 (07:02→16:49)
[2023-04-18] MEDS: CLOPIDOGREL BISULFATE 75 MG TABLET (FP) PO SCH (10:11)
[2023-04-18] MEDS: FERROUS SO4 325 MG TABLET (FP) PO SCH (10:11)
[2023-04-18] MEDS: ASPIRIN 81 MG CHEWABLE TABLETS PO SCH (10:11)
[2023-04-18] MEDS: PANTOPRAZOLE 40 MG TABLET PO SCH (10:11)
[2023-04-18] MEDS: BACITRACIN 0.9 GM PACKET TP SCH ×2 (10:12→22:02)
[2023-04-18] MEDS: LIDOCAINE 5% TOPICAL PATCH TP SCH (10:12)
[2023-04-18] MEDS: METHYL SALICYLATE/MENTHOL OINT 30 GM TUBE TP SCH ×2 (10:12→22:02)
[2023-04-18] MEDS: PRENATAL VITAMINS W/ FOLIC ACID TABLET (FP) PO SCH (10:12)
[2023-04-18] MEDS ORDERED: INSULIN (NOVOLOG) ASPART 100 UNITS/ML 10ML VIAL ONE (16:38)
[2023-04-18] MEDS: THIAMINE HCL 100 MG TABLET (FP) PO SCH (22:01)
[2023-04-18] MEDS: MELATONIN 5 MG TABLETS PO SCH (22:01)
[2023-04-18] MEDS: ATORVASTATIN CA 80 MG TABLET (FP) PO SCH (22:01)
[2023-04-18] MEDS: LIDOCAINE PATCH REMOVAL MC SCH (22:02)
[2023-04-18] MEDS: INSULIN (LEVEMIR) 100 UNITS/ML UNITS SQ SCH (22:02)
[2023-04-19] MEDS: metFORMIN HCL 500 MG TABLET (FP) PO SCH (06:30)
[2023-04-19] MEDS: methaDONE 80 MG, methaDONE 20 MG PO SCH (06:30)
[2023-04-19] MEDS: DOXYCYCLINE HYCLATE 100 MG TABLET PO SCH ×2 (06:30→17:44)
[2023-04-19] MEDS: INSULIN SLIDING SCALE (NOVOLOG) 1 VIAL SQ SCH ×2 (06:31→16:48)
[2023-04-19] MEDS: BACITRACIN 0.9 GM PACKET TP SCH ×2 (09:52→22:08)
[2023-04-19] MEDS: FERROUS SO4 325 MG TABLET (FP) PO SCH (09:52)
[2023-04-19] MEDS: ASPIRIN 81 MG CHEWABLE TABLETS PO SCH (09:52)
[2023-04-19] MEDS: CLOPIDOGREL BISULFATE 75 MG TABLET (FP) PO SCH (09:52)
[2023-04-19] MEDS: PANTOPRAZOLE 40 MG TABLET PO SCH (09:52)
[2023-04-19] MEDS: LIDOCAINE 5% TOPICAL PATCH TP SCH (09:53)
[2023-04-19] MEDS: METHYL SALICYLATE/MENTHOL OINT 30 GM TUBE TP SCH ×2 (09:53→22:08)
[2023-04-19] MEDS: PRENATAL VITAMINS W/ FOLIC ACID TABLET (FP) PO SCH (09:53)
[2023-04-19] MEDS: ATORVASTATIN CA 80 MG TABLET (FP) PO SCH (22:02)
[2023-04-19] MEDS: INSULIN (LEVEMIR) 100 UNITS/ML UNITS SQ SCH (22:03)
[2023-04-19] MEDS: THIAMINE HCL 100 MG TABLET (FP) PO SCH (22:09)
[2023-04-19] MEDS: MELATONIN 5 MG TABLETS PO SCH (22:09)
[2023-04-19] MEDS: LIDOCAINE PATCH REMOVAL MC SCH (22:09)
[2023-04-20] MEDS: DOXYCYCLINE HYCLATE 100 MG TABLET PO SCH ×2 (06:13→17:00)
[2023-04-20] MEDS: metFORMIN HCL 500 MG TABLET (FP) PO SCH (06:13)
[2023-04-20] MEDS: methaDONE 80 MG, methaDONE 20 MG PO SCH (06:13)
[2023-04-20] MEDS: INSULIN SLIDING SCALE (NOVOLOG) 1 VIAL SQ SCH ×2 (06:29→16:54)
[2023-04-20] MEDS: MAG HYDROX/AL HYDROX/SIMETH 30 ML UNIT-DOSE CUP PO PRN (07:55)
[2023-04-20] MEDS: FERROUS SO4 325 MG TABLET (FP) PO SCH (09:50)
[2023-04-20] MEDS: ASPIRIN 81 MG CHEWABLE TABLETS PO SCH (09:50)
[2023-04-20] MEDS: BACITRACIN 0.9 GM PACKET TP SCH ×2 (09:50→21:01)
[2023-04-20] MEDS: METHYL SALICYLATE/MENTHOL OINT 30 GM TUBE TP SCH ×2 (09:50→21:01)
[2023-04-20] MEDS: PRENATAL VITAMINS W/ FOLIC ACID TABLET (FP) PO SCH (09:51)
[2023-04-20] MEDS: LIDOCAINE 5% TOPICAL PATCH TP SCH (09:51)
[2023-04-20] MEDS: CLOPIDOGREL BISULFATE 75 MG TABLET (FP) PO SCH (09:51)
[2023-04-20] MEDS: PANTOPRAZOLE 40 MG TABLET PO SCH (09:51)
[2023-04-20] MEDS ORDERED: INSULIN (NOVOLOG) ASPART 100 UNITS/ML 10ML VIAL ONE (16:41)
[2023-04-20] MEDS: MELATONIN 5 MG TABLETS PO SCH (21:01)
[2023-04-20] MEDS: ATORVASTATIN CA 80 MG TABLET (FP) PO SCH (21:01)
[2023-04-20] MEDS: INSULIN (LEVEMIR) 100 UNITS/ML UNITS SQ SCH (21:01)
[2023-04-20] MEDS: THIAMINE HCL 100 MG TABLET (FP) PO SCH (21:01)
[2023-04-20] MEDS: LIDOCAINE PATCH REMOVAL MC SCH (21:02)
[2023-04-21 06:23] VITALS: BP 125/78; PULSE 101; RESP 16; TEMP 97.9
[2023-04-21] MEDS: methaDONE 80 MG, methaDONE 20 MG PO SCH (06:25)
[2023-04-21] MEDS: metFORMIN HCL 500 MG TABLET (FP) PO SCH (06:25)
[2023-04-21] MEDS: DOXYCYCLINE HYCLATE 100 MG TABLET PO SCH (07:06)
[2023-04-21] MEDS: INSULIN SLIDING SCALE (NOVOLOG) 1 VIAL SQ SCH (07:06)
[2023-04-21] MEDS: MAG HYDROX/AL HYDROX/SIMETH 30 ML UNIT-DOSE CUP PO PRN (08:28)
[2023-04-21] MEDS: ASPIRIN 81 MG CHEWABLE TABLETS PO SCH (09:23)
[2023-04-21] MEDS: CLOPIDOGREL BISULFATE 75 MG TABLET (FP) PO SCH (09:23)
[2023-04-21] MEDS: PANTOPRAZOLE 40 MG TABLET PO SCH (09:23)
[2023-04-21] MEDS: FERROUS SO4 325 MG TABLET (FP) PO SCH (09:23)
[2023-04-21] MEDS: METHYL SALICYLATE/MENTHOL OINT 30 GM TUBE TP SCH (09:24)
[2023-04-21] MEDS: BACITRACIN 0.9 GM PACKET TP SCH (09:24)
[2023-04-21] MEDS: PRENATAL VITAMINS W/ FOLIC ACID TABLET (FP) PO SCH (09:24)
[2023-04-21] MEDS: LIDOCAINE 5% TOPICAL PATCH TP SCH (09:24)
== END 2023-04-21 09:38 | disposition home or self-care (01) | DRG 772 ==
LOC: YASAS 12:53 → Y3E 16:32
PROVIDERS: ADMIT Allergy & Immunology; ATTEND Psychiatry & Neurology Pain Medicine
PROC: HZ42ZZZ Group Counseling for Substance Abuse Treatment, Cognitive-Behavioral (ICD-10-PCS; principal; 2023-03-24)
DX: F11.20 Opioid dependence, uncomplicated (principal); F17.210 Nicotine dependence, cigarettes, uncomplicated; I25.10 Atherosclerotic heart disease of native coronary artery without angina pectoris; I10 Essential (primary) hypertension; I25.2 Old myocardial infarction; Z95.5 Presence of coronary angioplasty implant and graft; E10.621 Type 1 diabetes mellitus with foot ulcer; L97.519 Non-pressure chronic ulcer of other part of right foot with unspecified severity; Z79.4 Long term (current) use of insulin; R63.4 Abnormal weight loss; Z68.20 Body mass index [BMI] 20.0-20.9, adult; Z20.822 Contact with and (suspected) exposure to COVID-19; S99.921A Unspecified injury of right foot, initial encounter; W01.198A Fall on same level from slipping, tripping and stumbling with subsequent striking against other object, initial encounter; Y92.230 Patient room in hospital as the place of occurrence of the external cause
CPT/HCPCS: 36415; 73502-TC-RT-FY; 80053; 81003; 82962; 85027; 86780; 86803; 87635; 87811